=== PATIENT | female | born 1975 | race Caucasian/White ===

== ENCOUNTER 2020-10-10 08:56 | Outpatient (NON) | payer BC, SELFPAY ==
[2020-10-10 12:28] LABS: Influenza Control Positive
== END 2020-10-10 08:57 ==
PROVIDERS: PCP Family Medicine; Visit Provider Family Medicine
DX: J32.9 Chronic sinusitis, unspecified (principal)
CPT/HCPCS: 87804

== ENCOUNTER 2021-01-18 17:21 | Outpatient (CLI) | payer OTHER, SELFPAY | END 2021-01-18 17:22 | disposition home or self-care (01) | LOC: ANHCOVIDVC 17:21 | PROVIDERS: PCP Family Medicine | DX: Z23 Encounter for immunization (principal) | CPT/HCPCS: 0001A; 91300 ==

== ENCOUNTER 2021-02-08 17:15 | Outpatient (CLI) | payer OTHER, SELFPAY | END 2021-02-08 17:16 | disposition home or self-care (01) | LOC: ANHCOVIDVC 17:15 | PROVIDERS: PCP Family Medicine | DX: Z23 Encounter for immunization (principal) | CPT/HCPCS: 0002A; 91300 ==

== ENCOUNTER 2021-05-08 07:31 | Outpatient (CLI) | payer OTHER, SELFPAY ==
[2021-05-08 19:26] LABS: Alanine Aminotransferase 60 U/L (4-35); Albumin Level 3.9 g/dL (3.5-5.1); Alkaline Phosphatase 86 U/L (38-126); Anion Gap 8 mmol/L (8-16); Aspartate Amino Transferase 42 U/L (14-36); Bilirubin,Total 0.4 mg/dL (0.2-1.3); Blood Urea Nitrogen 9 mg/dL (7-17); Carbon Dioxide 25 mmol/L (22-30); Chloride 106 mmol/L (98-107); Estimated Glomerular Filt Rate > 60; Glucose 171 mg/dL (65-105); Potassium 3.9 mmol/L (3.4-5.0); Sodium 139 mmol/L (137-145)
[2021-05-08 19:38] LABS: Free T4 Free Thyroxine 0.87 ng/mL (0.78-2.19)
[2021-05-08 19:50] LABS: Thyroid Stimulating Hormone 0.199 uIU/mL (0.465-4.680)
[2021-05-11 08:00] LABS: Progesterone 11.3 ng/mL (***); Triiodothyronine T3 Free 3.8 pg/mL (2.3-4.2)
[2021-05-11 11:30] LABS: T3 Reverse 14 ng/dL (8-25)
== END 2021-05-08 07:32 | disposition home or self-care (01) ==
LOC: ANHBWCLAB 07:33
PROVIDERS: PCP Family Medicine; Visit Provider Family Medicine
DX: E11.65 Type 2 diabetes mellitus with hyperglycemia (principal); G25.81 Restless legs syndrome; Z79.899 Other long term (current) drug therapy; Z86.39 Personal history of other endocrine, nutritional and metabolic disease; R89.9 Unspecified abnormal finding in specimens from other organs, systems and tissues; Z87.891 Personal history of nicotine dependence; R79.89 Other specified abnormal findings of blood chemistry; E03.9 Hypothyroidism, unspecified; N99.89 Other postprocedural complications and disorders of genitourinary system; Z98.51 Tubal ligation status
CPT/HCPCS: 36415; 80053; 83036; 84144; 84439; 84443; 84481; 84482; 87086; 87088

== ENCOUNTER 2021-09-18 07:43 | Outpatient (CLI) | payer BC, SELFPAY ==
[2021-09-18 19:11] LABS: Basophils Percent Auto 0.5 % (0.2-1.2); Eosinophils Absolute Auto 0.1 K/mm3 (0-0.3); Eosinophils Percent Auto 0.8 % (0-4.4); Hematocrit 43.2 % (37.0-47.0); Immature Granulocyte Absolute 0.02 K/mm3 (0.00-0.031); Immature Granulocyte Percent A 0.3 % (0-0.5); Lymphocytes Absolute Auto 2.16 K/mm3 (0.9-3.2); Lymphocytes Percent Auto 28.8 % (18.3-44.2); Mean Corpuscular HGB Conc 32.4 g/dl (32-36); Mean Corpuscular Hemoglobin 29.2 pg (26-34); Mean Platelet Volume 9.8 fl (7.4-10.4); Monocytes Absolute Auto 0.3 K/mm3 (0.1-0.6); Monocytes Percent Auto 4.4 % (2.6-8.5); Neutrophils Absolute Auto 4.9 K/mm3 (1.3-6.7); Neutrophils Percent Auto 65.2 % (45.5-73.1); Platelet Count Result 241 k/mm3 (150-375); Red Cell Distribution Width 12.3 % (11.5-14.5); White Blood Count 7.5 K/mm3 (4.5-10.0)
[2021-09-18 19:28] LABS: Alanine Aminotransferase 32 U/L (4-35); Albumin Level 4.2 g/dL (3.5-5.1); Alkaline Phosphatase 97 U/L (38-126); Anion Gap 11 mmol/L (8-16); Aspartate Amino Transferase 28 U/L (14-36); Bilirubin,Total 0.4 mg/dL (0.2-1.3); Blood Urea Nitrogen 13 mg/dL (7-17); Carbon Dioxide 22 mmol/L (22-30); Chloride 103 mmol/L (98-107); Cholesterol 165 mg/dL (0-200); Estimated Glomerular Filt Rate > 60; Glucose 146 mg/dL (65-110); HDL Direct 41 mg/dL; Potassium 4.1 mmol/L (3.4-5.0); Sodium 136 mmol/L (137-145); Triglycerides 87 mg/dL (<150)
[2021-09-18 19:39] LABS: Free T4 Free Thyroxine 0.95 ng/mL (0.78-2.19)
[2021-09-18 19:40] LABS: LDL Cholesterol Direct 107 mg/dL
[2021-09-18 19:43] LABS: Vitamin D 25 Hydroxy 38.7 ng/mL
[2021-09-18 19:58] LABS: Thyroid Stimulating Hormone 0.111 uIU/mL (0.465-4.680)
[2021-09-18 20:12] LABS: Hemoglobin A1C 6.2 % (<5.7)
[2021-09-18 20:33] LABS: Vitamin B12 > 1000.0 pg/mL (239-931)
[2021-09-18 20:41] LABS: Creatinine Urine 186.3 mg/dL
[2021-09-18 20:45] LABS: MALB Creatinine Ratio 9.1 mg/g (0-30); Microalbumin Urine Random 16.9 mg/L (0-16.7)
[2021-09-21 15:53] LABS: Triiodothyronine T3 Free 3.8 pg/mL (2.3-4.2)
[2021-09-21 16:41] LABS: Progesterone 7.5 ng/mL (***)
== END 2021-09-18 07:44 | disposition home or self-care (01) ==
LOC: ANHBWCLAB 07:45
PROVIDERS: PCP Family Medicine; Visit Provider Family Medicine
DX: E03.9 Hypothyroidism, unspecified (principal); E11.65 Type 2 diabetes mellitus with hyperglycemia; E53.8 Deficiency of other specified B group vitamins; F41.9 Anxiety disorder, unspecified; R79.89 Other specified abnormal findings of blood chemistry; Z82.49 Family history of ischemic heart disease and other diseases of the circulatory system; Z86.39 Personal history of other endocrine, nutritional and metabolic disease
CPT/HCPCS: 36415; 80053; 80061; 82043; 82306; 82607; 83036; 84144; 84439; 84443; 84481; 85025

== ENCOUNTER 2022-04-17 07:29 | Outpatient (CLI) | payer BC, SELFPAY ==
[2022-04-17 20:22] LABS: Alanine Aminotransferase 24 U/L (6-35); Albumin Level 4.4 g/dL (3.5-5.1); Alkaline Phosphatase 77 U/L (38-126); Anion Gap 10 mmol/L (8-16); Aspartate Amino Transferase 20 U/L (14-36); Bilirubin,Total 0.6 mg/dL (0.2-1.3); Blood Urea Nitrogen 13 mg/dL (7-17); Carbon Dioxide 21 mmol/L (22-30); Chloride 106 mmol/L (98-107); Cholesterol 154 mg/dL (0-200); Estimated Glomerular Filt Rate > 60; Glucose 143 mg/dL (65-110); HDL Direct 44 mg/dL; Potassium 4.1 mmol/L (3.4-5.0); Sodium 137 mmol/L (137-145); Triglycerides 129 mg/dL (<150)
[2022-04-17 20:33] LABS: Creatinine Urine 212.6 mg/dL; LDL Cholesterol Direct 82 mg/dL
[2022-04-17 20:36] LABS: MALB Creatinine Ratio 8.7 mg/g (0-30); Microalbumin Urine Random 18.6 mg/L (0-16.7)
[2022-04-17 20:52] LABS: Hemoglobin A1C 6.6 % (<5.7)
[2022-04-20 04:14] LABS: Progesterone 12.9 ng/mL (***)
[2022-04-21 04:31] LABS: Thyroid Peroxidase Antibodies <1 IU/mL (<9)
== END 2022-04-17 07:30 | disposition home or self-care (01) ==
PROVIDERS: PCP Family Medicine; Visit Provider Family Medicine
DX: E11.9 Type 2 diabetes mellitus without complications (principal); E34.9 Endocrine disorder, unspecified; F41.9 Anxiety disorder, unspecified
CPT/HCPCS: 36415; 80053; 80061; 82043; 83036; 84144; 86376

== ENCOUNTER 2022-05-27 07:31 | Outpatient (CLI) | payer BC, SELFPAY ==
[2022-05-27 19:23] LABS: Free T4 Free Thyroxine 0.92 ng/mL (0.78-2.19)
[2022-05-27 19:36] LABS: Thyroid Stimulating Hormone 0.724 uIU/mL (0.465-4.680)
[2022-05-31 06:48] LABS: Triiodothyronine T3 Free 3.1 pg/mL (2.3-4.2)
== END 2022-05-27 07:32 | disposition home or self-care (01) ==
PROVIDERS: PCP Family Medicine; Visit Provider Family Medicine
DX: E03.9 Hypothyroidism, unspecified (principal)
CPT/HCPCS: 36415; 84439; 84443; 84481

== ENCOUNTER 2022-06-06 14:03 | Outpatient (CLI) | payer BC, SELFPAY ==
--- NOTE | ~2022-06-06 | MM_ITS ---
EXAMINATION: MM diagnostic reyes BI w [facility] HISTORY: Palpable left breast abnormality. TECHNIQUE: Additional 3-D tomosynthesis images of the breasts were performed and synthetic 2-D images were generated. CAD analysis was submitted and interpreted. COMPARISON: No prior studies for comparison. BREAST PARENCHYMAL COMPOSITION: Breast composed of scattered areas of fibroglandular density FINDINGS: There are no suspicious masses, calcifications or architectural distortion in either breast to suggest malignancy. IMPRESSION: 1. No mammographic evidence for malignancy in either breast. 2. Targeted left breast ultrasound recommended for complete evaluation of palpable breast abnormality . BI-RADS Category 0: Incomplete: Needs additional imaging evaluation. Reviewed, dictated and finalized at location A. IMPRESSION: 1. No mammographic evidence for malignancy in either breast. 2. Targeted left breast ultrasound recommended for complete evaluation of palpa ble breast abnormality. BI-RADS Category 0: Incomplete: Needs additional imaging evaluation.
== END 2022-06-06 14:04 | disposition home or self-care (01) ==
LOC: ANHIMG 14:07
PROVIDERS: PCP Family Medicine; Visit Provider Family Medicine
DX: R92.8 Other abnormal and inconclusive findings on diagnostic imaging of breast (principal)
CPT/HCPCS: 77062; 77066; G0279

== ENCOUNTER 2022-08-13 16:30 | Outpatient (CLI) | payer BC, SELFPAY ==
--- NOTE | ~2022-08-13 | US_ITS ---
US breast LT complete 08/13/2022 17:26 Indication: Palpable left breast lump Procedure: High-resolution complete left breast ultrasound including all 4 quadrants in the subareola r location Comparison: No prior studies for comparison. Findings: At 9:00, 5 cm from the nipple there is an oval hypoechoic mass with slightly irregular ramya ins, no internal vascularity and no posterior features. There is parallel orientation. This mass abbie ures 5 x 3 x 3 mm. At 10:00 in the area of palpable concern, 10 cm from the nipple there is an oval h ypoechoic mass with parallel orientation, no internal vascularity, no posterior features and no inter nal vascularity. There is an echogenic hilum. In the left axilla there is a mildly enlarged 2 cm lymp h node with normal echogenic hilum, likely reactive. This mass measures 8 x 6 x 4 mm, likely an intra mammary lymph node. Impression: 1: Left breast mass located at 9:00, 5 cm from the nipple with slightly irregular margins measuring 5 mm. BI-RADS CATEGORY 4-SUSPICIOUS ABNORMALITY RECOMMENDATION: Ultrasound-guided left breast biopsy recommended. Reviewed, dictated and finalized at location A. Impression: 1: Left breast mass located at 9:00, 5 cm from the nipple with slightly irregul ar margins measuring 5 mm. BI-RADS CATEGORY 4-SUSPICIOUS ABNORMALITY RECOMMENDATION: Ultrasound-guided left breast biopsy recommended.
== END 2022-08-13 16:31 | disposition home or self-care (01) ==
LOC: ANHIMG 16:34
PROVIDERS: PCP Family Medicine; Visit Provider Family Medicine
DX: R92.8 Other abnormal and inconclusive findings on diagnostic imaging of breast (principal); N63.22 Unspecified lump in the left breast, upper inner quadrant; R59.0 Localized enlarged lymph nodes
CPT/HCPCS: 76641

== ENCOUNTER → 2022-11-29 07:20 | Outpatient (CLI) | payer BC, SELFPAY ==
--- NOTE | ~2022-11-29 | US_ITS ---
US soft tissue LE RT 11/29/2022 07:43 Indication: Palpable abnormality of the right upper thigh Procedure: High-resolution Limited ultrasound of the right upper thigh. Comparison: No prior studies for comparison. Findings: Normal heterogeneous soft tissues without focal mass. No abnormal enhancement. No discrete fluid collections. Impression: 1: Normal soft tissue ultrasound of the right upper thigh. No discrete mass. Reviewed, dictated and finalized at location A. OR NEWSP[employer]ER Impression: 1: Normal soft tissue ultrasound of the right upper thigh. No discrete mass.
== END ==
PROVIDERS: PCP Family Medicine; Visit Provider Family Medicine
DX: R22.41 Localized swelling, mass and lump, right lower limb (principal)
CPT/HCPCS: 76882

== ENCOUNTER 2023-07-08 07:57 | Outpatient (CLI) | payer BC, SELFPAY ==
[2023-07-08 18:14] LABS: Hematocrit 43.7 % (37.0-47.0); Mean Corpuscular Hemoglobin 29.5 pg (26-34); Mean Corpuscular Volume 92.2 fl (80-100); Platelet Count Result 204 k/mm3 (150-375); Red Blood Count 4.74 M/mm3 (4.2-5.4); White Blood Count 7.2 K/mm3 (4.5-10.0)
[2023-07-08 19:02] LABS: Cholesterol 161 mg/dL (0-200); HDL Direct 47 mg/dL; Triglycerides 89 mg/dL (<150)
[2023-07-08 19:05] LABS: Alanine Aminotransferase 23 U/L (6-35); Albumin Level 4.3 g/dL (3.5-5.1); Alkaline Phosphatase 63 U/L (38-126); Anion Gap 5 mmol/L (8-16); Aspartate Amino Transferase 55 U/L (14-36); Bilirubin,Total 0.7 mg/dL (0.2-1.3); Blood Urea Nitrogen 11 mg/dL (7-17); Calcium 8.5 mg/dL (8.4-10.2); Carbon Dioxide 29 mmol/L (22-30); Chloride 102 mmol/L (98-107); Estimated Glomerular Filt Rate > 60; Glucose 108 mg/dL (65-110); Potassium 4.1 mmol/L (3.4-5.0); Sodium 136 mmol/L (137-145)
[2023-07-08 19:13] LABS: LDL Cholesterol Direct 85 mg/dL
[2023-07-08 19:34] LABS: Creatinine Urine 163.9 mg/dL
[2023-07-08 19:34] LABS: Thyroid Stimulating Hormone 0.972 uIU/mL (0.465-4.680)
[2023-07-08 19:39] LABS: MALB Creatinine Ratio 5.2 mg/g (0-30); Microalbumin Urine Random 8.5 mg/L (0-16.7)
[2023-07-08 20:13] LABS: Free T4 Free Thyroxine 1.03 ng/mL (0.78-2.19)
[2023-07-08 20:30] LABS: Vitamin D 25 Hydroxy 49.8 ng/mL
[2023-07-08 21:36] LABS: Hemoglobin A1C 5.4 % (<5.7)
[2023-07-11 07:10] LABS: Progesterone 0.8 ng/mL (***); Triiodothyronine T3 Free 2.9 pg/mL (2.3-4.2)
[2023-07-11 13:55] LABS: T3 Reverse 15 ng/dL (8-25)
== END 2023-07-08 07:58 | disposition home or self-care (01) ==
LOC: ANHBWCLAB 07:59
PROVIDERS: Family Medicine; PCP Family Medicine; Visit Provider Family Medicine
DX: F41.9 Anxiety disorder, unspecified (principal); E11.65 Type 2 diabetes mellitus with hyperglycemia; E03.9 Hypothyroidism, unspecified; R79.89 Other specified abnormal findings of blood chemistry; N99.89 Other postprocedural complications and disorders of genitourinary system; R89.9 Unspecified abnormal finding in specimens from other organs, systems and tissues; G25.81 Restless legs syndrome; R22.41 Localized swelling, mass and lump, right lower limb; E34.9 Endocrine disorder, unspecified; N63.0 Unspecified lump in unspecified breast; E66.3 Overweight; E53.8 Deficiency of other specified B group vitamins; Z98.51 Tubal ligation status; Z86.39 Personal history of other endocrine, nutritional and metabolic disease; Z87.891 Personal history of nicotine dependence; Z79.899 Other long term (current) drug therapy
CPT/HCPCS: 36415; 80053; 80061; 82043; 82306; 82607; 83036; 84144; 84439; 84443; 84481; 84482; 85027

== ENCOUNTER 2023-09-07 00:16 | Day surgery (SDC) | payer BC, SELFPAY ==
[2023-07-28 10:00] VITALS: BMI 28.4
[2023-08-26 14:19] VITALS: BMI 28.4
--- NOTE | 2023-09-04 10:32 | SUR.PREOP ---
Patient called regarding upcoming procedure. Reviewed preop instructions and appointment times left on pt's voicemail.
[2023-09-07 08:07] VITALS: BP 114/74; PULSE 85; RESP 20; TEMP 36.3; O2SAT 99; BMI 28.6
[2023-09-07] MEDS: LACTATED RINGERS 1,000 ML 150 ML IV CONT (08:19)
[2023-09-07 08:23] LABS: Glucose Point of Care 106 mg/dl (65-105)
--- NOTE | 2023-09-07 08:31 | WPDANESEPPF ---
Anes - Initial Pre Proc Eval Procedure: Operation Date: 09/07/23 09:30 Proposed Procedures p Screening Colonoscopy - Brett Mancilla MD Date/Time: 09/07/23 08:31 Surgeon: Brett Mancilla MD Pre Op Diagnosis: neoplasm screening Patient Data Age: 48 Gender: F Height: 1.65 m Weight: 78.1 kg Last Vital Signs Temp 97.3 F L 09/07/23 08:07 Pulse 85 09/07/23 08:07 Resp 20 09/07/23 08:07 BP 114/74 09/07/23 08:07 Pulse Ox 99 09/07/23 08:07 O2 Del Method Room Air 09/07/23 08:07 Allergies Allergy/AdvReac Type Severity Reaction Status Date / Time No Known Allergies Allergy Verified 09/07/23 08:06 Home Medications Medication Instructions Recorded Confirmed Type flash glucose scanning reader #1 ea 10/27/22 09/07/23 Rx (FreeStyle Ever 14 Day [place]) flash glucose sensor (FreeStyle #2 ea 10/27/22 09/07/23 Rx Ever 14 Day Sensor kit) semaglutide 1 mg/dose (4 mg/3 mL) 1 mg (0.75 mL) subcut WEEKLY 3 10/27/22 09/07/23 Rx subcutaneous pen injector (Ozempic) months #9.75 mL Laboratory Tests 09/07/23 08:18 POC Capillary Glucose 106 H mg/dl (65-105) Patient hx anesthesia problems: none Family hx anesthesia problems: none Results Review: All pre-operative results and documents have been reviewed as part of the pre-operative evaluation. [facility] Past Medical History Medical History Allergies Anxiety COVID-19 previous diagnosis COVID Diabetes Surgical History Surgical History History of partial hysterectomy Family History Family History Mother Diabetes mellitus Social History Social History (Updated 10/27/22 @ 07:35 by Olesya Hackett CMA) Smoking packs per day: 3 Smoking cigarettes per day: 60.0 Years smoked: 1 Smoking pack-years: 3.00 Smoking status: Former smoker Tobacco type: cigarettes Alcohol intake: current Drinks per week: 1 Alcohol use details: rarely Substance use: never Substance use type: does not use Lack of Transportation: No Lack of Food: Never True Current Housing: I Have Housing Concerned About Future Housing: No Difficulty Paying Gas/Electric Bills: No Difficulty Paying for Meds: No Currently Unemployed: No Education: High School Diploma/GED Difficulty w/ Childcare or Family Care: No Living arrangements: with family Spiritual care concerns: No Anes - Eval Final PreProcedure Day of Procedure 09/07/23 08:31 Patient weight: normal Heart: regular rate and rhythm Lungs: clear to auscultation Airway: Mallampati scale class II Neurological: alert and oriented Last oral intake: >/= 8 hours ASA classification: II Emergent: no Anesthetic plan: proceed Anesthesia type and monitoring: general GIVS and standard monitoring Results Review: All pre-operative results and documents have been reviewed as part of the pre-operative evaluation. Informed Consent: The patient's anesthetic plan and its attendant risks and benefits were discussed with the patient/family/POA. Questions were solicited and answers provided to the satisfaction of the patient/family/POA.
--- NOTE | 2023-09-07 08:47 | PM.HPGS ---
History of Present Illness History of Present Illness Consent: Risks, benefits, and alternatives have been discussed and questions answered. Patient agrees to proceed with procedure. Chief complaint: neoplasm screening Narrative: Nettie Ann is a 48 year old female here for first screening colonoscopy Review of Systems Constitutional: Constitutional: Denies headache(s) and Denies weakness Eyes: Eyes: Denies blurry vision ENT: Reports Normal hearing present, Denies headache(s) and Denies neck pain Cardiovascular: Cardiovascular: Denies chest pain and Denies dyspnea Respiratory: Respiratory: Denies dyspnea Gastrointestinal: Gastrointestinal: Reports no additional gastrointestinal complaints Genitourinary: Genitourinary: Denies dysuria Musculoskeletal: Musculoskeletal: Denies neck pain Integumentary/Breasts: Skin/Breast: Denies dry skin Neurologic: Reports Normal hearing present, Denies headache(s) and Denies weakness Psychiatric: Psychiatric: Denies anxiety Endocrine: Endocrine: Denies change in body appearance Hematologic/Lymphatic: Hematologic/Lymphatic: Denies easy bleeding Allergic/Immunologic: Allergic/Immunologic: Denies urticaria PMFSH Past Medical History Medical History Allergies Anxiety COVID-19 previous diagnosis COVID Diabetes Surgical History Surgical History History of partial hysterectomy Family History Family History Mother Diabetes mellitus Social History Social History (Updated 10/27/22 @ 07:35 by Olesya Hackett [facility]) Smoking packs per day: 3 Smoking cigarettes per day: 60.0 Years smoked: 1 Smoking pack-years: 3.00 Smoking status: Former smoker Tobacco type: cigarettes Alcohol intake: current Drinks per week: 1 Alcohol use details: rarely Substance use: never Substance use type: does not use Lack of Transportation: No Lack of Food: Never True Current Housing: I Have Housing Concerned About Future Housing: No Difficulty Paying Gas/Electric Bills: No Difficulty Paying for Meds: No Currently Unemployed: No Education: High School Diploma/GED Difficulty w/ Childcare or Family Care: No Living arrangements: with family Spiritual care concerns: No Meds Home Medications and Allergies Home Medications Medication Instructions Recorded Confirmed Type flash glucose scanning reader #1 ea 10/27/22 09/07/23 Rx (FreeStyle Ever 14 Day [place]) flash glucose sensor (FreeStyle #2 ea 10/27/22 09/07/23 Rx Ever 14 Day Sensor kit) semaglutide 1 mg/dose (4 mg/3 mL) 1 mg (0.75 mL) subcut WEEKLY 3 10/27/22 09/07/23 Rx subcutaneous pen injector (Ozempic) months #9.75 mL Allergies Allergy/AdvReac Type Severity Reaction Status Date / Time No Known Allergies Allergy Verified 09/07/23 08:06 Vital Signs Vital Signs - 24 hr 09/07/23 08:07 Temperature 97.3 F L Pulse Rate 85 Respiratory Rate 20 Blood Pressure 114/74 Pulse Oximetry 99 Oxygen Delivery Room Air Exam Const: General: comfortable and no acute distress HENMT: Face/Nose/Sinus: Normal nares present Eyes: General: appearance normal, both eyes and all related structures Neck: Neck: no JVD Resp: Auscultation: clear to auscultation bilaterally Cardio: Rate: regular rate Rhythm: regular rhythm GI: Inspection: non-distended GI Palp: Yes Soft to palpation Skin: General skin exam: normal color Neuro: General: gait normal Speech: normal speech Extrem: General: normal to inspection Psych: Mental Status: mental status grossly normal Assessment and Plan Assessment and plan (1) Colon cancer screening: Code(s): Z12.11 - Encounter for screening for malignant neoplasm of colon Status: Acute Assessment and Plan: colonoscopy
[2023-09-07 09:01] VITALS: BP 105/68; PULSE 67; RESP 25; O2SAT 99
[2023-09-07 09:11] VITALS: BP 102/69; PULSE 66; RESP 19; O2SAT 99
== END 2023-09-07 09:27 | disposition home or self-care (01) ==
PROVIDERS: PCP Family Medicine; Visit Provider Internal Medicine Gastroenterology
PROC: 0DJD8ZZ Inspection of Lower Intestinal Tract, Via Natural or Artificial Opening Endoscopic (ICD-10-PCS; CPT 45378; principal; 2023-09-07 09:30)
DX: Z12.11 Encounter for screening for malignant neoplasm of colon (principal); D12.5 Benign neoplasm of sigmoid colon; K64.8 Other hemorrhoids; K57.30 Diverticulosis of large intestine without perforation or abscess without bleeding; F41.9 Anxiety disorder, unspecified; E11.9 Type 2 diabetes mellitus without complications; Z87.891 Personal history of nicotine dependence; Z79.85 Long-term (current) use of injectable non-insulin antidiabetic drugs
CPT/HCPCS: 45385; 82948; 88305; J2704; J7120